=== PATIENT | male | born 1985 | race Caucasian/White ===

== ENCOUNTER → 2023-01-02 | Outpatient (REF) | payer BC ==
[2023-01-02 14:26] LABS: CORTISOL AM 11.2 UG/DL (4.3-22.4)
[2023-01-02 14:30] LABS: ESTRADIOL 27.9 PG/ML (<39.8)
== END ==
LOC: M LAB REF 12:59
PROVIDERS: ATTEND Nurse Practitioner Family
DX: R53.83 Other fatigue (principal); N52.9 Male erectile dysfunction, unspecified

== ENCOUNTER → 2023-01-21 | Outpatient (REF) | LOC: M LAB 09:55 | PROVIDERS: ATTEND Nurse Practitioner Adult Health | DX: Z01.89 Encounter for other specified special examinations (principal) ==

== ENCOUNTER → 2023-02-11 | Outpatient (CLI) | payer BC | LOC: M EKG 09:16 | PROVIDERS: ATTEND Nurse Practitioner Family | DX: R07.9 Chest pain, unspecified (principal) ==

== ENCOUNTER → 2023-03-10 | Outpatient (CLI) | payer BC | LOC: M CARPUL 10:00 | PROVIDERS: ATTEND Nurse Practitioner Family | DX: I08.3 Combined rheumatic disorders of mitral, aortic and tricuspid valves (principal); I77.819 Aortic ectasia, unspecified site ==

== ENCOUNTER 2024-04-27 10:21 | Emergency (ER) | payer OTHER ==
[~2024-04-27] VITALS: Ht 188 cm; Wt 129.6 kg
[2024-04-27] MEDS ORDERED: HYDR50TA70 (10:43)
[2024-04-27] MEDS ORDERED: VYVA60CA (10:43)
[2024-04-27] MEDS ORDERED: SILD100T (10:43)
[2024-04-27 10:44] VITALS: BP 160/90; TEMP 97.8; O2SAT 97
== END 2024-04-27 11:13 | disposition home or self-care (01) ==
LOC: M ED 10:21
DX: S00.83XA Contusion of other part of head, initial encounter (principal); W22.8XXA Striking against or struck by other objects, initial encounter; Z79.899 Other long term (current) drug therapy; Y92.9 Unspecified place or not applicable; Y93.89 Activity, other specified; Y99.0 Civilian activity done for income or pay

== ENCOUNTER → 2024-05-07 | Outpatient (REF) | payer BC ==
[~2024-05-07] MED LIST: HYDR50TA70; SILD100T; VYVA60CA
[2024-05-07 15:08] LABS: FOLLICLE STIMULATING HORMONE 3.6 mIU/ML (1.4-18.1)
[2024-05-07 15:09] LABS: ESTRADIOL < 19.0 PG/ML (<39.8)
== END ==
LOC: M LAB REF 12:13
PROVIDERS: ATTEND Nurse Practitioner Family
DX: N52.9 Male erectile dysfunction, unspecified (principal); R68.82 Decreased libido; R53.83 Other fatigue